=== PATIENT | male | born 1990 | race African-American/Black ===

== ENCOUNTER 2021-02-11 23:53 | Emergency (ER) | payer SELFPAY ==
[2021-02-11 23:57] VITALS: BP 171/102; PULSE 79; RESP 16; TEMP 36.4; O2SAT 100
[2021-02-12 00:10] VITALS: BP 165/104; PULSE 83; RESP 16; O2SAT 98
[2021-02-12] MEDS: LORazepam (*CRX) 1 MG TABLET PO (00:31)
--- NOTE | 2021-02-12 00:31 | PC.NURSE ---
Pt admitted to this RN of using cocaine and marijuana this evening before symptoms started.
--- NOTE | 2021-02-12 00:36 | ED.ABDPAIN ---
HPI - Abdominal Pain General Chief Complaint: Urogenital-Male Stated Complaint: testicular pain/shoulder Time Seen by Provider: 02/11/21 23:58 Source: patient Mode of arrival: ambulatory Limitations: no limitations History of Present Illness HPI narrative: 38-year-old with no major medical problems with recent cocaine use here with complaints of penile pain. Patient states his veins around the penile is swelling up and cutting the circulation to his entire body and he entire body is getting stiff and his testicles are getting stiff ., Pertinent past history: none Pain Consistency: constant Location: groin and other (penis) Severity: moderate Quality: aching Exacerbating factors: nothing Related Data Home Medications Medication Instructions Recorded Confirmed No Home Medications 02/12/21 02/12/21 Allergies Allergy/AdvReac Type Severity Reaction Status Date / Time No Known Allergies Allergy Verified 02/12/21 00:18 Review of Systems Review of Systems: All systems reviewed & are unremarkable except as noted in HPI and below Constitutional: Constitutional: Reports no additional constitutional complaints ENT: Reports system reviewed and no additional complaints, except as documented Cardiovascular: Cardiovascular: Reports no additional cardiovascular complaints Respiratory: Respiratory: Reports no additional respiratory complaints Gastrointestinal: Gastrointestinal: Reports no additional gastrointestinal complaints Genitourinary: Genitourinary: Reports as per HPI Musculoskeletal: Musculoskeletal: Reports no additional musculoskeletal complaints PMFSH Social History Social History Gender identity (if verbalized by the patient): Male Exam Narrative: Exam Narrative: GENERAL: Well-appearing, well-nourished, and in no acute distress.,anxious HEAD: Normocephalic, atraumatic. EYES: PERRLA and EOMI.. NECK: Supple. CHEST: Clear to auscultation. No respiratory distress. HEART: Regular rate and rhythm. No murmur heard. Normal peripheral pulses. ABDOMEN: Soft, nontender, nondistended, normal active bowel sounds. Normal Penis , no venous engorgement ,testis descended EXTREMITIES: Normal range of motion. No edema. SKIN: Warm, dry, no rash. NEURO: No focal deficits. Alert and oriented x3. PSYCH: Normal mood and affect. Course Course Emergency Course: No change in the status patient constantly pulling his penis out and stating that they are all swollen and I agree examined that it appears to be normal Vital Signs Vital signs: Vital Signs Temperature 36.4 C 02/11/21 23:57 Pulse Rate 79 02/11/21 23:57 Respiratory Rate 16 02/11/21 23:57 Blood Pressure 171/102 H 02/11/21 23:57 Pulse Oximetry 100 02/11/21 23:57 Temperature 36.4 C 02/11/21 23:57 Pulse Rate 83 02/12/21 00:10 Respiratory Rate 16 02/12/21 00:10 Blood Pressure 165/104 H 02/12/21 00:10 Pulse Oximetry 98 02/12/21 00:10 Discharge Plan Discharge Clinical Impression: Pain, penile Patient Disposition: Home, Self-Care Condition: Stable Instructions: Antibiotic Form, Balanitis (ED) Additional Instructions: apply ice , take Ibuprofen for pain , follow with Urologist Prescriptions: No Action No Home Medications RF: 0 Follow-up/Referrals: PHYSICIAN,INTERRELATED [employer] EDUC[employer] TE[employer]ER [Primary Care Provider] - Ozzy Jimenez MD [Physician] - Time of Disposition: :23
--- NOTE | 2021-02-12 00:45 | PC.NURSE ---
Pt attempted to give urine sample at this time. Unsuccessful.
[2021-02-12 01:40] VITALS: BP 162/98; PULSE 93; RESP 16; O2SAT 99
== END 2021-02-12 01:40 | disposition home or self-care (01) ==
PROVIDERS: Emergency Provider Family Medicine
DX: N48.89 Other specified disorders of penis (principal)
CPT/HCPCS: 99283; A9270